=== PATIENT | female | born 1980 ===

== ENCOUNTER 2021-03-17 08:09 | Outpatient (CLI) | payer OTHER | END 2021-03-17 09:15 | disposition home or self-care (01) | LOC: PRENATAL 08:09 | PROVIDERS: ATTEND Obstetrics & Gynecology Maternal & Fetal Medicine | DX: O26.843 Uterine size-date discrepancy, third trimester (principal); O35.0XX1 Maternal care for (suspected) central nervous system malformation in fetus, fetus 1; O40.3XX1 Polyhydramnios, third trimester, fetus 1; O09.523 Supervision of elderly multigravida, third trimester; Z36.89 Encounter for other specified antenatal screening; Z3A.36 36 weeks gestation of pregnancy ==